=== PATIENT | male | born 1945 | race Caucasian/White ===

== ENCOUNTER 2019-10-16 12:03 | Emergency (ER) | payer MEDICARE, BC, SELFPAY ==
[2019-10-16 12:21] VITALS: BP 132/80; PULSE 67; RESP 16; TEMP 37.1; O2SAT 96; BMI 25.9
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
[2019-10-16 12:52] LABS: Add Manual Diff / Slide Review NO; Basophils Absolute Auto 0 /uL (0-100); Basophils Percent Auto 0.9 % (0-2); Eosinophils Absolute Auto 100 /uL (0-450); Eosinophils Percent Auto 1.5 % (2-4); Hematocrit 40.3 % (41-53); Hemoglobin 13.7 g/dL (13.5-17.5); Lymphocytes Absolute Auto 1000 /uL (1100-4500); Lymphocytes Percent Auto 20.5 % (25-40); Mean Corpuscular HGB Conc 33.9 % (30-36); Mean Corpuscular Hemoglobin 32.4 PG (26-34); Mean Corpuscular Volume 95.5 fL (80-100); Monocytes Absolute Auto 400 /uL (0-900); Monocytes Percent Auto 8.4 % (3-14); Neutrophils Absolute Auto 3400 /uL (1500-7000); Neutrophils Percent Auto 68.7 % (50-75); Platelet Count 154 X10^3/uL (150-400); Red Blood Cell Count 4.22 X10^6/uL (4.5-5.9); Red Cell Distribution Width 13.7 % (11.6-14.8)
[2019-10-16 12:59] LABS: INR 1.3 (0.9-1.3); Prothrombin Time 14.6 SECONDS (10.1-12.7)
== END 2019-10-16 13:17 | disposition home or self-care (01) ==
PROVIDERS: Emergency Provider Emergency Medicine
DX: S40.022A Contusion of left upper arm, initial encounter (principal); Z79.01 Long term (current) use of anticoagulants
CPT/HCPCS: 36415; 85025; 85610; 99281; 99283

== ENCOUNTER 2021-06-18 21:20 | Emergency (ER) | payer MEDICARE, BC, SELFPAY ==
[2021-06-18 21:32] VITALS: PULSE 86; RESP 22; O2SAT 97
[2021-06-18 21:34] VITALS: BP 149/70; PULSE 88; RESP 17; TEMP 37; O2SAT 98; BMI 25.2
--- NOTE | 2021-06-18 21:39 | DI.RAD.S_ITS ---
PROCEDURE: XR CHEST 1V INDICATIONS: dizziness TECHNIQUE: One view of the chest was acquired. COMPARISON: None. FINDINGS: Surgical changes and devices: None. Lungs and pleura: Subtle patchy opacities in lung bases bilat No pleural effusions or pneumothorax. Mediastinum: Mediastinal contours appear normal. Heart size is normal. Bones and chest wall: No suspicious bony lesions. Overlying soft tissues appear unremarkable. IMPRESSION: Bibasilar atelectasis versus pneumonia. Dictated by: Leah Koch MD, PhD on 06/18/2021 at 22:03 Approved by: Leah Koch MD, PhD on 06/18/2021 at 22:03
[2021-06-18 21:40] VITALS: BP 120/66; PULSE 81; RESP 19; O2SAT 96
[2021-06-18 22:00] VITALS: BP 112/59; PULSE 80; RESP 10; O2SAT 94
[2021-06-18 22:30] VITALS: BP 111/59; PULSE 79; RESP 12; O2SAT 93
[2021-06-18] MEDS: SODIUM CHLORIDE 0.9% 1,000 ML 1000 ML IV (22:44)
[2021-06-18 22:52] LABS: Add Manual Diff / Slide Review NO; Basophils Absolute Auto 100 /uL (0-100); Basophils Percent Auto 1.3 % (0-2); Eosinophils Absolute Auto 100 /uL (0-450); Eosinophils Percent Auto 1.6 % (2-4); Hematocrit 37.2 % (41-53); Hemoglobin 12.7 g/dL (13.5-17.5); Lymphocytes Absolute Auto 1100 /uL (1100-4500); Lymphocytes Percent Auto 22.5 % (25-40); Mean Corpuscular HGB Conc 34.1 % (30-36); Mean Corpuscular Hemoglobin 30.8 PG (26-34); Mean Corpuscular Volume 90.3 fL (80-100); Monocytes Absolute Auto 400 /uL (0-900); Monocytes Percent Auto 8.4 % (3-14); Neutrophils Absolute Auto 3300 /uL (1500-7000); Neutrophils Percent Auto 66.2 % (50-75); Platelet Count 179 X10^3/uL (150-400); Red Blood Cell Count 4.12 X10^6/uL (4.5-5.9); Red Cell Distribution Width 13.8 % (11.6-14.8)
[2021-06-18 23:00] VITALS: BP 142/70; PULSE 78; RESP 12; O2SAT 96
[2021-06-18 23:05] LABS: INR 1.7 (0.9-1.3); Prothrombin Time 19.4 SECONDS (10.1-12.7)
[2021-06-18 23:07] LABS: BUN Creatinine Ratio 33.3 (6-22); Blood Urea Nitrogen 26 mg/dL (9-20); Calcium 8.9 mg/dL (8.4-10.2); Carbon Dioxide 23 mmol/L (22-32); Chloride 107 mmol/L (98-107); Creatine Kinase 113 U/L (55-170); Estimated Glomerular Filt Rate > 60.0 mL/min (>60); Glucose 143 mg/dL (80-110); HEMOLYSIS 15 (0-50); Magnesium 1.9 mg/dL (1.6-2.3); Sodium 137 mmol/L (137-145)
[2021-06-18 23:08] LABS: PTT Partial Thromboplastin Tim 40 SECONDS (26.4-36.2)
[2021-06-18 23:18] LABS: Troponin I < 0.012 ng/mL (0.01-0.034)
[2021-06-18 23:21] LABS: CKMB % Relative Index 2.6 % (1.5-5.0); Creatine Kinase MB 2.89 ng/mL (<2.37)
--- NOTE | 2021-06-18 23:26 | ED_ITS ---
HPI - Dizziness General Chief Complaint: Dizziness Stated Complaint: Low b/p/dizzy/cardioversion may 29 Time Seen by Provider: 06/18/21 21:39 Source: patient, RN notes reviewed and old records reviewed Mode of arrival: Ambulatory Limitations: no limitations History of Present Illness HPI Narrative: This is a 76-year-old male comes emergency department complaint of low blood pressure and feeling lightheaded. Patient states he started having episodes of lightheadedness after starting a 1600 calorie ADA diet. He states yesterday he did eat much of anything. He has not had any syncope or passing out but has fe lt intermittently lightheaded. He checked his blood pressure at home multiple times he had 1 reading of 80 systolic, several of 90 systolic in the majority were 110 or higher. Patient denies chest pain, shortness of breath. No diaphoresis. No nausea or vomiting. No issues with bowel movements, no urinary issues. No cold, cough or congestive symptoms. He has had a cardiac ablation x2. This was unsuccessful in controlling his AFib and he had a cardioversion on May 30, 2021 at [facility]. He notes that he did not have any readings that showed irregular beats on his monitors for about a week and has occasionally but not persistently had them. He has follow-up on July 14, 2021. He is anticoagulated on Xarelto, he takes metoprolol 12.5 mg daily, atorvastatin, pr is on tamsulosin. He denies any prior cardiac stents. 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 No known drug allergies. No tobacco, alcohol or illicit. Related Data Allergies Allergy/AdvReac Type Severity Reaction Status Date / Time No Known Drug Allergies Allergy Verified 10/16/19 12:54 Review of Systems Review of Systems ROS Unobtainable: All systems reviewed & are unremarkable except as noted in HPI and below Patient History Social History Smoking Status: Never smoker Smoking Status: Never smoker alcohol intake frequency: a few times a month Alcohol type: beer Substance Use Type: does not use Exam Narrative Exam Narrative: GENERAL: Alert and oriented x three, male in mild distress. HEENT: Head normocephalic, atraumatic, EOMI, pupils reactive, face symmetric, moist mucous membranes NECK: Supple, full range of motion CARDIOVASCULAR: Regular rate and rhythm without murmurs, rubs or gallops. RESPIRATORY: Breath sounds equal bilaterally, no wheezes rales or rhonchi. ABDOMEN: Soft, nontender. Normoactive bowel sounds all 4 quadrants. No guarding or rebound, rigidity, no mass : No CVA tenderness EXTREMITIES: Normal range of motion, no clubbing or edema. Neurovascularly intact NEUROLOGICAL: Cranial nerves II through XII grossly intact. Moving all extremities SKIN: Warm, dry, no petechiae, no rashes or lesions. Initial Vital Signs Initial Vital Signs: Vital Signs Pulse Rate 86 06/18/21 21:32 Respiratory Rate 22 06/18/21 21:32 Pulse Oximetry 97 06/18/21 21:32 Course Orders Ordered: ED Orders 06/18/21 21:38 EKG-12 Lead Stat 06/18/21 21:39 XR chest 1V Stat 06/18/21 22:40 Basic Metabolic Panel Stat Complete Blood Count AUTO DIFF Stat Magnesium Stat Partial Thromboplastin Time Stat Prothrombin Time INR Stat Thyroid Stimulating Hormone Stat Troponin & CK Cardiac Panel Stat Discontinued Medications Sodium Chloride (Normal Saline 0.9%) 1,000 mls @ 1,000 mls/hr IV BOLUS ONE Stop: 06/18/21 22:38 Last Infusion: 06/19/21 00:06 Dose: 0 mls/hr Documented by: Admin: 06/18/21 22:44 Dose: 1,000 mls/hr Documented by: SMOOTH Vital Signs Vital signs: Vital Signs - 8 hr 06/18/21 21:32 06/18/21 21:34 06/18/21 21:40 Temperature 98.6 F Pulse Rate 86 88 81 Respiratory Rate 22 17 19 Blood Pressure 149/70 H 120/66 Pulse Oximetry 97 98 96 06/18/21 22:00 06/18/21 22:30 06/18/21 23:00 Temperature Pulse Rate 80 79 78 Respiratory Rate 10 L 12 12 Blood Pressure 112/59 L 111/59 L 142/70 H Pulse Oximetry 94 93 96 MDM - Dizziness Lab Data Result diagrams: 06/18/21 22:40 06/18/21 22:40 Labs: Lab Results 06/18/21 06/18/21 06/18/21 Range/Units 22:40 22:40 22:40 WBC 5.0 (4.5-11.0) X10^3/uL RBC 4.12 L (4.5-5.9) X10^6/uL Hgb 12.7 L (13.5-17.5) g/dL Hct 37.2 L (41-53) % MCV 90.3 (80-100) fL MCH 30.8 (26-34) PG MCHC 34.1 (30-36) % RDW 13.8 (11.6-14.8) % Plt Count 179 (150-400) X10^3/uL Neut % (Auto) 66.2 (50-75) % Lymph % (Auto) 22.5 L (25-40) % Calvert % (Auto) 8.4 (3-14) % Eos % (Auto) 1.6 L (2-4) % Baso % (Auto) 1.3 (0-2) % Neut # (Auto) 3300 (0837-1894) /uL Lymph # (Auto) 1100 (2393-0599) /uL Calvert # (Auto) 400 (0-900) /uL Eos # (Auto) 100 (0-450) /uL Baso # (Auto) 100 (0-100) /uL PT 19.4 H (10.1-12.7) SECONDS INR 1.7 H (0.9-1.3) APTT 40 H (26.4-36.2) SECONDS Sodium 137 (137-145) mmol/L Potassium 4.0 (3.4-5.1) mmol/L Chloride 107 (98-107) mmol/L Carbon Dioxide 23 (22-32) mmol/L BUN 26 H (9-20) mg/dL Creatinine 0.78 (0.66-1.25) mg/dL Estimated GFR > 60.0 (>60) mL/min BUN/Creatinine Ratio 33.3 H (6-22) Glucose 143 H (80-110) mg/dL Calcium 8.9 (8.4-10.2) mg/dL Magnesium 1.9 (1.6-2.3) mg/dL Total Creatine Kinase 113 (55-170) U/L CK-MB (CK-2) 2.89 H (<2.37) ng/mL CK-MB (CK-2) Rel Index 2.6 (1.5-5.0) % Troponin I < 0.012 (0.01-0.034) ng/mL TSH (0.47-4.68) uIU/mL 06/18/21 Range/Units 22:40 WBC (4.5-11.0) X10^3/uL RBC (4.5-5.9) X10^6/uL Hgb (13.5-17.5) g/dL Hct (41-53) % MCV (80-100) fL MCH (26-34) PG MCHC (30-36) % RDW (11.6-14.8) % Plt Count (150-400) X10^3/uL Neut % (Auto) (50-75) % Lymph % (Auto) (25-40) % Calvert % (Auto) (3-14) % Eos % (Auto) (2-4) % Baso % (Auto) (0-2) % Neut # (Auto) (1211-2934) /uL Lymph # (Auto) (4118-5171) /uL Calvert # (Auto) (0-900) /uL Eos # (Auto) (0-450) /uL Baso # (Auto) (0-100) /uL PT (10.1-12.7) SECONDS INR (0.9-1.3) APTT (26.4-36.2) SECONDS Sodium (137-145) mmol/L Potassium (3.4-5.1) mmol/L Chloride (98-107) mmol/L Carbon Dioxide (22-32) mmol/L BUN (9-20) mg/dL Creatinine (0.66-1.25) mg/dL Estimated GFR (>60) mL/min BUN/Creatinine Ratio (6-22) Glucose (80-110) mg/dL Calcium (8.4-10.2) mg/dL Magnesium (1.6-2.3) mg/dL Total Creatine Kinase (55-170) U/L CK-MB (CK-2) (<2.37) ng/mL CK-MB (CK-2) Rel Index (1.5-5.0) % Troponin I (0.01-0.034) ng/mL TSH 5.98 H (0.47-4.68) uIU/mL Imaging Data Chest x-ray: Radiologist's Impression: [address] [address] XRay Report Signed Patient: Paris Canchola MR#: [id number] : 1945 Acct:[id number] Age/Sex: 76 / M Date of Service: 06/18/21 Loc: ED Accession Number: [id number] ?? Procedure: XR chest 1V Ordering Provider: Kyara Arreguin D.O. PROCEDURE:? XR CHEST 1V ? INDICATIONS:? dizziness ? TECHNIQUE:? One view of the chest was acquired.? ? COMPARISON:? None. ? FINDINGS:? ? Surgical changes and devices:? None.? ? Lungs and pleura:? Subtle patchy opacities in lung bases bilat No pleural effusions or pneumothorax.? ? Mediastinum:? Mediastinal contours appear normal.? Heart size is normal.? ? Bones and chest wall:? No suspicious bony lesions.? Overlying soft tissues appear unremarkable.? ? IMPRESSION:? Bibasilar atelectasis versus pneumonia. ? ? Dictated by: Leah Koch MD, PhD on 06/18/2021 at 22:03 ? ? Approved by: Leah Koch MD, PhD on 06/18/2021 at 22:03?? ECG Data Attestation: I personally reviewed and interpreted this ECG as follows: Prior ECG tracings: not available for review Interpretation: Sinus rhythm with occasional PVC. Rate 86, P are 200, QRS 86 and QTC 449. No acute ST elevation or depression appreciated. MDM Narrative Medical decision making narrative: This is a 76-year-old male who comes emergency department for complaint of lobar pressure, lightheadedness sensation any cardioversion in 2021. Patient's labs are reassuring. Patient's chest x-ray shows possible atelectasis versus pneumonia. Patient states that he has not had any congestive symptoms no cold cough for pneumonia type things. He states he has scoliosis and does sort of hold himself flexed. Patient and I discussed he denies any symptoms of infection and suspect this is more atelectasis today. Patient's blood pressures here are more appropriate. His vitals are otherwise appropriate. 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 Discharge Plan Departure Patient Disposition: Home Clinical Impression: Intermittent lightheadedness Activity Restrictions/Additional Instructions: Follow-up with your funeral service practitioner/embalmer. When individuals lose weight this can sometimes allowed your blood pressure to run lower. Make sure your hydrating well. If you continue to have persistently low blood pressures your physician may adjust your metoprolol. Please return for fevers, chest pain, shortness of breath, persistent lightheadedness or passing out, new swelling in your extremities or other new or concerning symptoms.
[2021-06-18 23:50] LABS: Thyroid Stimulating Hormone 5.98 uIU/mL (0.47-4.68)
== END 2021-06-19 00:07 | disposition home or self-care (01) ==
PROVIDERS: Emergency Provider Emergency Medicine
DX: R42 Dizziness and giddiness (principal); Z79.01 Long term (current) use of anticoagulants; Z79.899 Other long term (current) drug therapy
CPT/HCPCS: 36415; 71045; 80048; 82550; 82553; 83735; 84443; 84484; 85025; 85610; 85730; 93005; 93010; 96360; 99284

== ENCOUNTER → 2023-05-28 09:55 | Outpatient (CLI) | payer MEDICARE, BC, SELFPAY ==
[2023-05-28 11:35] LABS: Hematocrit 36.9 % (41-53); Hemoglobin 12.2 g/dL (13.5-17.5); Mean Corpuscular HGB Conc 33.1 % (30-36); Mean Corpuscular Hemoglobin 29.8 PG (26-34); Mean Corpuscular Volume 90.2 fL (80-100); Platelet Count 137 X10^3/uL (150-400); Red Blood Cell Count 4.09 X10^6/uL (4.5-5.9); Red Cell Distribution Width 14.8 % (11.6-14.8); White Blood Cell Count 4.2 X10^3/uL (4.5-11.0)
[2023-05-28 11:46] LABS: Hemoglobin A1C% w Est Avg Glu 6.5 % (4.0-6.0)
[2023-05-28 11:54] LABS: Alanine Aminotransferase 40 IU/L (<50); Albumin 4.1 g/dL (3.5-5.0); Albumin Globulin Ratio 1.1 (1.0-2.8); Alkaline Phosphatase 109 U/L (38-126); Aspartate Aminotransferase 37 IU/L (17-59); BUN Creatinine Ratio 27.3 (6-22); Bilirubin Total 1.1 mg/dL (0.2-1.3); Blood Urea Nitrogen 21 mg/dL (9-20); Calcium 8.9 mg/dL (8.4-10.2); Carbon Dioxide 23 mmol/L (22-32); Chloride 106 mmol/L (98-107); Cholesterol 107 mg/dL (140-199); Estimated Glomerular Filt Rate > 60 mL/min (>60); Globulin 3.6 g/dL (1.7-4.1); Glucose 117 mg/dL (80-110); HDL Cholesterol 37 mg/dL (40-60); HEMOLYSIS < 15 (0-50); LDL Cholesterol Calculated 58 mg/dL (<100); Potassium 4.2 mmol/L (3.4-5.1); Sodium 138 mmol/L (137-145); Total Protein 7.7 g/dL (6.3-8.2); Triglycerides 59 mg/dL (35-150)
[2023-05-28 12:22] LABS: Prostate Specific Antigen 0.456 ng/mL (0.10-4.00)
[2023-05-28 12:24] LABS: TSH w/ Reflex to FT4 2.82 uIU/mL (0.47-4.68)
== END ==
PROVIDERS: PCP Internal Medicine; Referring Provider Internal Medicine; Visit Provider Internal Medicine
DX: Z00.00 Encounter for general adult medical examination without abnormal findings (principal); N13.8 Other obstructive and reflux uropathy; N40.1 Benign prostatic hyperplasia with lower urinary tract symptoms; E78.2 Mixed hyperlipidemia; I48.0 Paroxysmal atrial fibrillation; R03.0 Elevated blood-pressure reading, without diagnosis of hypertension; R73.01 Impaired fasting glucose
CPT/HCPCS: 36415; 80053; 80061; 83036; 84153; 84443; 85027

== ENCOUNTER 2023-06-05 13:39 | Day surgery (SDC) | payer MEDICARE, BC, SELFPAY ==
--- NOTE | 2023-06-05 | PATH_ITS ---
[facility] Accession Number: [id number] No. of containers..01 Tissue . 01 Material submitted: . rectum - RECTAL POLYP . 01 Diagnosis: RECTAL POLYP: Hyperplastic polyp. MRV 06/07/2023 1325 Local . 01 Electronically signed: . Edy Brice MD, PhD, Pathologist NPI- [id number] . 01 Gross description: . RECTAL POLYP: Received in formalin is 1 fragment(s) of pagan, soft tissue measuring 0.8 x 0.5 x 0.2 cm submitted entirely in 1 cassette(s) /MAY 06/07/2023 0121 Local . 01 Pathologist provided ICD-10: K62.1 . 01 CPT . 672930 Specimen Comment: A courtesy copy of this report has been sent to [phone] Performed at: 01 [facility] [address] [place] [address], [place], [place] [id number] MD Irving Cantu MD Phone: [phone]
[2023-06-05 13:55] VITALS: BP 159/95; PULSE 78; RESP 18; TEMP 36.2; O2SAT 97
--- NOTE | 2023-06-05 14:02 | PM.PREOP ---
Pre-operative Note COVID-19 COVID-19 status: Not tested Interval Note History & Physical reviewed/Exam performed by Physician: Yes Changes to H&P: No ASA Class (for procedural sedation): II
[2023-06-05] MEDS: LACTATED RINGERS 1,000 ML 42 ML IV (14:06)
--- NOTE | 2023-06-05 15:25 | PM.OP.COLON ---
Operative Date/Time/Diagnoses Date of procedure: 06/05/23 Time of procedure: 15:26 Pre-op diagnosis: Change in bowel function Post-op diagnosis: same Procedure & Clinicians Study performed: Sigmoidoscopy Same procedure as scheduled: No Surgeon: Emmett Silverman Procedure Notes Procedure in detail: Surgeon: Emmett Silverman MD Anesthesia: Brenda Connelly CRNA Procedure: The patient was brought to the endoscopy suite, placed in left lateral decubitus position. The patient was connected to monitoring devices. A time-out was performed. Sedation was administered. Once the patient was adequately sedated, a digital rectal exam was performed and was normal. The scope was then inserted and advanced to to about the mid sigmoid colon. There was an acute angle and a very narrow stricture. There was moderate diverticulosis in the sigmoid colon. The patient was repositioned was applied to try to change geometry sigmoid to no avail. The colonoscope was switched out to a pediatric colonoscope but no further progress could be made past the acute angulation in the sigmoid colon. At this point the procedure was aborted and the scope was withdrawn. One small polyp was seen in the rectum and removed with a cold snare. The scope was retroflexed and no other abnormalities were seen. Scope withdrawal time: Not applicable Sedation time: 33 minutes EBL: 2 mL Findings: Acute angulation in the sigmoid colon with diverticulosis and 1 small rectal Post-procedure Disposition: PACU
[2023-06-05 15:29] VITALS: BP 118/75; PULSE 80; RESP 20; TEMP 36.8; O2SAT 92
[2023-06-05 15:34] VITALS: BP 120/66; PULSE 71; RESP 14; O2SAT 92
[2023-06-05 15:39] VITALS: BP 137/79; PULSE 68; RESP 12; TEMP 36.4; O2SAT 97
[2023-06-05 15:47] VITALS: BP 136/86; PULSE 77; RESP 12; TEMP 36.5; O2SAT 96
== END 2023-06-05 16:12 | disposition home or self-care (01) ==
PROVIDERS: PCP Internal Medicine; Referring Provider Surgery; Visit Provider Surgery
PROC: 0DJD8ZZ Inspection of Lower Intestinal Tract, Via Natural or Artificial Opening Endoscopic (ICD-10-PCS; CPT 45378; principal; 2023-06-05 14:30)
DX: R19.4 Change in bowel habit (principal); K57.30 Diverticulosis of large intestine without perforation or abscess without bleeding; K62.1 Rectal polyp
CPT/HCPCS: 45331; J2704

== ENCOUNTER → 2023-06-13 09:04 | Outpatient (CLI) | payer MEDICARE, BC, SELFPAY ==
--- NOTE | 2023-06-13 09:05 | DI.CT.S_ITS ---
PROCEDURE: CT ABDOMEN PELVIS W CON INDICATIONS: change in bowel function TECHNIQUE: After the administration of intravenous contrast, axial sections acquired from the lung bases to the pubic symphysis. Coronal and sagittal reformats were performed. For radiation dose reduction, the following was used: automated exposure control, adjustment of mA and/or kV according to patient size. COMPARISON: None. FINDINGS: Image quality: Diagnostic. Lower Chest: Cardiomegaly. Three-vessel coronary calcifications. ABDOMEN: Liver: No solid mass. Gallbladder: Calcifications within the gallbladder. Biliary ducts: No biliary dilation. Pancreas: No ductal dilation. Spleen: Size is within normal limits. Adrenal Glands: No adrenal nodules. Kidneys and Ureters: No hydronephrosis. No solid mass. No complex renal cystic lesion which requires follow up. Stomach and Bowel: Normal colonic caliber, without significant wall thickening. Colonic diverticulosis without evidence of diverticulitis. Peritoneum: No abnormal intraperitoneal fluid. No free air. Central mesenteric fat stranding. Ventral Wall: No significant ventral hernia. Abdominal Nodes: Central mesenteric adenopathy, including a round lymph node measuring 1.7 x 1.7 centimeters in the left lower quadrant (series 2, image 51). Vessels: Aorta and inferior vena cava are normal in size. PELVIS: Pelvic Organs: Unremarkable. Bladder: No bladder wall thickening, accounting for underdistention. Pelvic Nodes: No enlarged lymph nodes. Miscellaneous: No inguinal hernias are seen. Bones: No aggressive osseous abnormality. Degenerative disc disease. Osteoporosis by Hounsfield units criteria. IMPRESSION: No obstructing rectal or sigmoid mass. Recommend diagnostic colonoscopy given symptoms. Colonic diverticulosis without evidence of diverticulitis. 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 Recommend surgical referral. Central mesenteric fat stranding with associated abnormal lymphadenopathy. Findings are concerning for lymphoma. Recommend hematology/oncology referral. Osteoporosis by Hounsfield units criteria. Marked coronary artery calcifications. Dictated by: Carlos Fuentes M.D. on 06/13/2023 at 12:30 Approved by: Carlos Fuentes M.D. on 06/13/2023 at 12:35
== END ==
PROVIDERS: PCP Internal Medicine; Referring Provider Surgery; Visit Provider Surgery
DX: K57.90 Diverticulosis of intestine, part unspecified, without perforation or abscess without bleeding (principal); R19.8 Other specified symptoms and signs involving the digestive system and abdomen; I51.7 Cardiomegaly; I25.10 Atherosclerotic heart disease of native coronary artery without angina pectoris; M81.0 Age-related osteoporosis without current pathological fracture
CPT/HCPCS: 74177; Q9967

== ENCOUNTER → 2023-07-29 13:51 | Outpatient (CLI) | payer MEDICARE, BC, SELFPAY | PROVIDERS: PCP Internal Medicine; Visit Provider Urology | DX: N40.1 Benign prostatic hyperplasia with lower urinary tract symptoms (principal); N13.8 Other obstructive and reflux uropathy | CPT/HCPCS: 87086 ==

== ENCOUNTER → 2023-08-13 13:56 | Outpatient (CLI) | payer MEDICARE, BC, SELFPAY ==
[2023-08-13 14:20] LABS: Add Manual Diff / Slide Review NO; Basophils Absolute Auto 0 /uL (0-100); Basophils Percent Auto 0.9 % (0-2); Eosinophils Absolute Auto 100 /uL (0-450); Eosinophils Percent Auto 2.6 % (2-4); Hematocrit 36.6 % (41-53); Lymphocytes Absolute Auto 1000 /uL (1100-4500); Lymphocytes Percent Auto 21.2 % (25-40); Mean Corpuscular HGB Conc 32.8 % (30-36); Mean Corpuscular Hemoglobin 28.9 PG (26-34); Mean Corpuscular Volume 88.1 fL (80-100); Monocytes Absolute Auto 400 /uL (0-900); Monocytes Percent Auto 7.7 % (3-14); Neutrophils Absolute Auto 3300 /uL (1500-7000); Neutrophils Percent Auto 67.6 % (50-75); Platelet Count 181 X10^3/uL (150-400); Red Blood Cell Count 4.16 X10^6/uL (4.5-5.9); Red Cell Distribution Width 16.2 % (11.6-14.8); White Blood Cell Count 4.8 X10^3/uL (4.5-11.0)
[2023-08-13 14:49] LABS: HEMOLYSIS < 15 (0-50); Iron 52 ug/dL (49-181)
[2023-08-13 14:49] LABS: BUN Creatinine Ratio 30.8 (6-22); Blood Urea Nitrogen 24 mg/dL (9-20); Calcium 8.9 mg/dL (8.4-10.2); Carbon Dioxide 21 mmol/L (22-32); Chloride 110 mmol/L (98-107); Estimated Glomerular Filt Rate > 60 mL/min (>60); Glucose 129 mg/dL (80-110); HEMOLYSIS < 15 (0-50); Potassium 4.2 mmol/L (3.4-5.1); Sodium 140 mmol/L (137-145)
--- NOTE | 2023-08-13 14:57 | DI.CT.S_ITS ---
PROCEDURE: CT IVP A/P W/WO INDICATIONS: multiple facets that could be enter related and/or new malig. History of right testicular cancer with radiation. Inguinal hernia repair. TECHNIQUE: Optional 5 mm thick noncontrast images acquired from the diaphragm to the symphysis pubis. After the administration of intravenous contrast, 5 mm thick images acquired from the diaphragm to the symphysis pubis after a 10-minute delay. 2 mm thick coronal and sagittal reformats were then performed of the kidneys and ureters. For radiation dose reduction, the following was used: automated exposure control, adjustment of mA and/or kV according to patient size. COMPARISON: [facility], CT, CT ABDOMEN PELVIS W CON, 06/13/2023, 10:13. FINDINGS: Image quality: Diagnostic. Kidneys and Ureters: Both kidneys are normal in size, without hydronephrosis or nephrolithiasis. No perinephric fat stranding. There is normal bilateral renal enhancement. Renal calyces appear normal in morphology when filled with contrast. Opacified portions of both ureters demonstrate normal caliber. Benign renal sinus cysts. Bladder: Bladder wall thickness is normal. No calcified bladder stones. OTHER: Lower chest: Cardiomegaly. Valvular calcifications. Small hiatal hernia. Liver: No solid mass. Gallbladder: Porcelain gallbladder. Biliary ducts: No biliary dilation. Pancreas: No ductal dilation. Spleen: Size is within normal limits. Adrenal Glands: No adrenal nodules. Stomach and Bowel: Normal colonic caliber, without significant wall thickening. Colonic diverticulosis without evidence of diverticulitis. Fecal debris within the small bowel. Peritoneum: No abnormal intraperitoneal fluid. No free air. Central mesenteric fat stranding. Ventral Wall: No hernia. Abdominal Nodes: Central mesenteric adenopathy, greater in size compared with prior. Dominant node measures 1.9 x 1.8 cm in the left lower quadrant, previously 1.7 x 1.7 cm (series 4, image 108). Vessels: Aorta and inferior vena cava are normal in size. PELVIS: Pelvic Organs: Unremarkable. Pelvic Nodes: No enlarged lymph nodes. Miscellaneous: No inguinal hernias are seen. Bones: No aggressive osseous abnormality. Osteoporosis by Hounsfield units criteria. Degenerative disc disease of the lumbar spine. IMPRESSION: No nephrolithiasis or filling defects within the opacified renal collecting system or ureters. Stable central mesenteric fat stranding with associated adenopathy, concerning for lymphoma. Stable porcelain gallbladder, which increases risk of gallbladder malignancy. Consider surgical referral. Dictated by: Carlos Fuentes M.D. on 08/13/2023 at 16:03 Approved by: Carlos Fuentes M.D. on 08/13/2023 at 16:10
[2023-08-13 15:00] LABS: Percent Iron Saturation 13 % (20-50); Total Iron Binding Capacity 397 ug/dL (261-462); Transferrin 300 mg/dL (206-381)
[2023-08-13 16:08] LABS: Ferritin 12 ng/mL (18-464)
[2023-08-13 16:22] LABS: Vitamin B12 341 pg/mL (239-931)
== END ==
PROVIDERS: PCP Internal Medicine; Referring Provider Urology; Visit Provider Urology
DX: R19.8 Other specified symptoms and signs involving the digestive system and abdomen (principal); R77.9 Abnormality of plasma protein, unspecified; K82.8 Other specified diseases of gallbladder; R31.29 Other microscopic hematuria; Z77.22 Contact with and (suspected) exposure to environmental tobacco smoke (acute) (chronic); N40.1 Benign prostatic hyperplasia with lower urinary tract symptoms; N13.8 Other obstructive and reflux uropathy; Z85.47 Personal history of malignant neoplasm of testis; Z92.3 Personal history of irradiation; D61.818 Other pancytopenia; E53.8 Deficiency of other specified B group vitamins
CPT/HCPCS: 36415; 74178; 80048; 82607; 82728; 83540; 83550; 84155; 84165; 85025; Q9967

== ENCOUNTER → 2023-08-30 08:42 | Outpatient (CLI) | payer MEDICARE, BC, SELFPAY | PROVIDERS: PCP Internal Medicine; Visit Provider Urology | DX: N40.1 Benign prostatic hyperplasia with lower urinary tract symptoms (principal); N13.8 Other obstructive and reflux uropathy | CPT/HCPCS: 87086 ==

== ENCOUNTER → 2023-09-05 16:04 | Outpatient (CLI) | payer MEDICARE, BC, SELFPAY ==
[2023-09-05 17:01] LABS: Appearance Urine UA SL CLOUDY; Bilirubin Urine UA NEGATIVE (NEGATIVE); Color Urine UA YELLOW; Glucose Urine UA NEGATIVE (Negative); Ketones Urine UA NEGATIVE (NEGATIVE); Leukocyte Esterase Urine UA 2+ (NEGATIVE); Nitrite Urine UA POSITIVE (Negative); Occult Blood Urine UA 3+ (Negative); Protein Urine UA TRACE (Negative); Specific Gravity Urine UA 1.025 (1.000-1.035); Urobilinogen Urine UA 0.2 E.U./dL (0.2); pH Urine UA 5.5 (4.5-8.0)
[2023-09-05 17:13] LABS: Bacteria Urine Few (2-10); RBC Urine 30-100/HPF (0-5/HPF); Urine Volume 10mL (spun); WBC Urine 30-100/HPF (0-5/HPF)
[2023-09-05 17:14] LABS: Amorphous Sediment Urine 1+; Culture Indicated Urine Specimen Cultured; Squamous Epithelial Cell Urine None Seen (0-5/HPF)
== END ==
PROVIDERS: PCP Internal Medicine; Visit Provider Urology
DX: N40.1 Benign prostatic hyperplasia with lower urinary tract symptoms (principal); N13.8 Other obstructive and reflux uropathy; R31.29 Other microscopic hematuria
CPT/HCPCS: 81001; 87086

== ENCOUNTER → 2023-09-13 08:39 | Outpatient (CLI) | payer MEDICARE, BC, SELFPAY | PROVIDERS: PCP Internal Medicine; Referring Provider Urology; Visit Provider Urology | DX: N40.1 Benign prostatic hyperplasia with lower urinary tract symptoms (principal); N13.8 Other obstructive and reflux uropathy | CPT/HCPCS: 81002; 87086 ==

== ENCOUNTER → 2023-09-19 12:58 | Outpatient (CLI) | payer MEDICARE, BC, SELFPAY ==
[2023-09-19 15:59] LABS: Prostate Specific Antigen 0.329 ng/mL (0.10-4.00)
== END ==
PROVIDERS: PCP Internal Medicine; Referring Provider Urology; Visit Provider Urology
DX: R31.29 Other microscopic hematuria (principal); N40.1 Benign prostatic hyperplasia with lower urinary tract symptoms; N13.8 Other obstructive and reflux uropathy
CPT/HCPCS: 36415; 84153

== ENCOUNTER → 2023-12-13 08:24 | Outpatient (CLI) | payer MEDICARE, OTHER, SELFPAY | PROVIDERS: PCP Internal Medicine; Visit Provider Urology | DX: N40.1 Benign prostatic hyperplasia with lower urinary tract symptoms (principal); N13.8 Other obstructive and reflux uropathy; R35.1 Nocturia; Z92.3 Personal history of irradiation; Z85.47 Personal history of malignant neoplasm of testis; Z77.22 Contact with and (suspected) exposure to environmental tobacco smoke (acute) (chronic); R31.29 Other microscopic hematuria; R82.81 Pyuria; Z68.28 Body mass index [BMI] 28.0-28.9, adult | CPT/HCPCS: 81002; 87077; 87086; 87147; 87186; 99214 ==

== ENCOUNTER → 2024-02-17 07:07 | Outpatient (CLI) | payer MEDICARE, OTHER, SELFPAY ==
[2024-02-17 07:53] LABS: Hematocrit 35.7 % (41-53); Hemoglobin 11.9 g/dL (13.5-17.5); Mean Corpuscular HGB Conc 33.3 % (30-36); Mean Corpuscular Volume 90.2 fL (80-100); Platelet Count 163 X10^3/uL (150-400); Red Blood Cell Count 3.96 X10^6/uL (4.5-5.9); Red Cell Distribution Width 13.9 % (11.6-14.8); White Blood Cell Count 3.6 X10^3/uL (4.5-11.0)
[2024-02-17 08:11] LABS: HEMOLYSIS < 15 (0-50); Iron 50 ug/dL (49-181)
[2024-02-17 08:13] LABS: BUN Creatinine Ratio 22.2 (6-22); Blood Urea Nitrogen 18 mg/dL (9-20); Calcium 9.2 mg/dL (8.4-10.2); Carbon Dioxide 24 mmol/L (22-32); Chloride 107 mmol/L (98-107); Estimated Glomerular Filt Rate > 60 mL/min (>60); Glucose 126 mg/dL (80-110); HEMOLYSIS < 15 (0-50); Potassium 4.4 mmol/L (3.4-5.1); Sodium 139 mmol/L (137-145)
[2024-02-17 08:22] LABS: Percent Iron Saturation 12 % (20-50); Total Iron Binding Capacity 410 ug/dL (261-462); Transferrin 330 mg/dL (206-381)
[2024-02-17 08:46] LABS: Ferritin 14 ng/mL (18-464)
[2024-02-17 09:00] LABS: Vitamin B12 335 pg/mL (239-931)
[2024-02-20 16:12] LABS: Methylmalonic Acid,Serum 224 nmol/L (0-378)
== END ==
PROVIDERS: PCP Internal Medicine; Referring Provider Nurse Practitioner Family; Visit Provider Nurse Practitioner Family
DX: I48.0 Paroxysmal atrial fibrillation (principal); E61.1 Iron deficiency; E53.8 Deficiency of other specified B group vitamins
CPT/HCPCS: 36415; 80048; 82607; 82728; 83540; 83550; 83921; 85027

== ENCOUNTER → 2024-03-23 12:02 | Outpatient (CLI) | payer MEDICARE, OTHER, SELFPAY ==
[2024-03-23 12:44] LABS: Hematocrit 35.9 % (41-53); Hemoglobin 11.9 g/dL (13.5-17.5); Mean Corpuscular HGB Conc 33.2 % (30-36); Mean Corpuscular Hemoglobin 29.8 PG (26-34); Mean Corpuscular Volume 89.7 fL (80-100); Platelet Count 166 X10^3/uL (150-400); Red Cell Distribution Width 15.2 % (11.6-14.8); White Blood Cell Count 4.2 X10^3/uL (4.5-11.0)
[2024-03-23 12:51] LABS: Hemoglobin A1C% w Est Avg Glu 6.1 % (4.0-6.0)
[2024-03-23 12:52] LABS: Alanine Aminotransferase 35 IU/L (<50); Albumin Globulin Ratio 1.3 (1.0-2.8); Alkaline Phosphatase 101 U/L (38-126); Aspartate Aminotransferase 46 IU/L (17-59); Bilirubin Total 0.5 mg/dL (0.2-1.3); Bilirubin Unconjugated 0.3 mg/dL (0.0-1.1); Globulin 3.2 g/dL (1.7-4.1); HEMOLYSIS < 15 (0-50); Total Protein 7.2 g/dL (6.3-8.2)
[2024-03-23 12:57] LABS: HEMOLYSIS < 15 (0-50); Iron 70 ug/dL (49-181)
[2024-03-23 12:59] LABS: Aspartate Aminotransferase 45 IU/L (17-59); BUN Creatinine Ratio 22.7 (6-22); Blood Urea Nitrogen 20 mg/dL (9-20); Calcium 8.9 mg/dL (8.4-10.2); Carbon Dioxide 26 mmol/L (22-32); Chloride 106 mmol/L (98-107); Cholesterol 131 mg/dL (140-199); Estimated Glomerular Filt Rate > 60 mL/min (>60); Glucose 150 mg/dL (80-110); HDL Cholesterol 42 mg/dL (40-60); HEMOLYSIS < 15 (0-50); LDL Cholesterol Calculated 65 mg/dL (<100); Potassium 4.1 mmol/L (3.4-5.1); Sodium 138 mmol/L (137-145); Triglycerides 121 mg/dL (35-150)
[2024-03-23 13:08] LABS: Percent Iron Saturation 20 % (20-50); Total Iron Binding Capacity 358 ug/dL (261-462); Transferrin 311 mg/dL (206-381)
[2024-03-23 13:24] LABS: TSH w/ Reflex to FT4 2.77 uIU/mL (0.47-4.68)
[2024-03-23 13:24] LABS: Prostate Specific Antigen 0.211 ng/mL (0.10-4.00)
[2024-03-23 13:28] LABS: Ferritin 17 ng/mL (18-464)
== END ==
PROVIDERS: PCP Internal Medicine; Referring Provider Nurse Practitioner Family; Visit Provider Nurse Practitioner Family
DX: I48.0 Paroxysmal atrial fibrillation (principal); R73.01 Impaired fasting glucose; E61.1 Iron deficiency; E78.2 Mixed hyperlipidemia; N40.1 Benign prostatic hyperplasia with lower urinary tract symptoms; N13.8 Other obstructive and reflux uropathy
CPT/HCPCS: 36415; 80048; 80061; 80076; 82728; 83036; 83540; 83550; 84153; 84443; 84450; 85027

== ENCOUNTER → 2024-04-23 09:11 | Outpatient (CLI) | payer MEDICARE, OTHER, SELFPAY ==
[2024-04-23 10:41] LABS: Albumin Globulin Ratio 1.3 (1.0-2.8); Bilirubin Unconjugated 0.3 mg/dL (0.0-1.1); HEMOLYSIS < 15 (0-50)
[2024-04-23 10:43] LABS: Alanine Aminotransferase 34 IU/L (<50); Alkaline Phosphatase 98 U/L (38-126); Aspartate Aminotransferase 41 IU/L (17-59); Bilirubin Total 0.5 mg/dL (0.2-1.3)
== END ==
LOC: LAB 09:15
PROVIDERS: PCP Internal Medicine; Referring Provider Nurse Practitioner Family; Visit Provider Nurse Practitioner Family
DX: I48.0 Paroxysmal atrial fibrillation (principal)
CPT/HCPCS: 36415; 80076

== ENCOUNTER → 2024-07-23 11:52 | Outpatient (CLI) | payer MEDICARE, OTHER, SELFPAY ==
[2024-07-23 13:10] LABS: Hematocrit 35.7 % (41-53); Hemoglobin 12.1 g/dL (13.5-17.5); Mean Corpuscular Hemoglobin 31.7 PG (26-34); Mean Corpuscular Volume 93.3 fL (80-100); Platelet Count 176 X10^3/uL (150-400); Red Blood Cell Count 3.83 X10^6/uL (4.5-5.9); Red Cell Distribution Width 13.9 % (11.6-14.8); White Blood Cell Count 4.1 X10^3/uL (4.5-11.0)
[2024-07-23 13:15] LABS: Hemoglobin A1C% w Est Avg Glu 5.7 % (4.0-6.0)
[2024-07-23 13:26] LABS: HEMOLYSIS < 15 (0-50); Iron 97 ug/dL (49-181)
[2024-07-23 13:31] LABS: BUN Creatinine Ratio 23.3 (6-22); Blood Urea Nitrogen 20 mg/dL (9-20); Calcium 9.1 mg/dL (8.4-10.2); Carbon Dioxide 25 mmol/L (22-32); Chloride 107 mmol/L (98-107); Cholesterol 133 mg/dL (140-199); Estimated Glomerular Filt Rate > 60 mL/min (>60); Glucose 107 mg/dL (80-110); HDL Cholesterol 44 mg/dL (40-60); HEMOLYSIS < 15 (0-50); LDL Cholesterol Calculated 69 mg/dL (<100); Potassium 4.4 mmol/L (3.4-5.1); Sodium 139 mmol/L (137-145); Triglycerides 98 mg/dL (35-150)
[2024-07-23 13:37] LABS: Percent Iron Saturation 27 % (20-50); Total Iron Binding Capacity 363 ug/dL (261-462); Transferrin 287 mg/dL (206-381)
[2024-07-23 14:01] LABS: Ferritin 16 ng/mL (18-464); Testosterone 82.7 ng/dL (71.8-623)
== END ==
PROVIDERS: PCP Internal Medicine; Referring Provider Internal Medicine; Visit Provider Internal Medicine
DX: R73.01 Impaired fasting glucose (principal); E61.1 Iron deficiency; E78.2 Mixed hyperlipidemia; R79.89 Other specified abnormal findings of blood chemistry
CPT/HCPCS: 36415; 80048; 80061; 82728; 83036; 83540; 83550; 84403; 85027

== ENCOUNTER → 2024-10-26 10:35 | Outpatient (CLI) | payer MEDICARE, OTHER, SELFPAY ==
[2024-10-26 11:17] LABS: Hematocrit 36.9 % (41-53); Hemoglobin 12.8 g/dL (13.5-17.5); Mean Corpuscular HGB Conc 34.7 % (30-36); Mean Corpuscular Hemoglobin 32.3 PG (26-34); Mean Corpuscular Volume 93.1 fL (80-100); Platelet Count 156 X10^3/uL (150-400)
[2024-10-26 11:44] LABS: HEMOLYSIS < 15 (0-50); Iron 86 ug/dL (49-181)
[2024-10-26 11:55] LABS: Percent Iron Saturation 24 % (20-50); Total Iron Binding Capacity 357 ug/dL (261-462); Transferrin 274 mg/dL (206-381)
[2024-10-26 11:57] LABS: Follicle Stimulating Hormone 38.8 mIU/mL
[2024-10-26 12:16] LABS: Ferritin 25 ng/mL (18-464)
== END ==
PROVIDERS: PCP Internal Medicine; Referring Provider Internal Medicine; Visit Provider Internal Medicine
DX: E61.1 Iron deficiency (principal); Z85.47 Personal history of malignant neoplasm of testis; E34.9 Endocrine disorder, unspecified
CPT/HCPCS: 36415; 82728; 83001; 83002; 83540; 83550; 84146; 84403; 85027

== ENCOUNTER → 2025-02-11 12:17 | Outpatient (CLI) | payer MEDICARE, OTHER, SELFPAY ==
--- NOTE | 2025-02-11 12:18 | DI.RAD.S_ITS ---
PROCEDURE: XR KNEE RT 3V
== END ==
PROVIDERS: PCP Internal Medicine; Referring Provider Chiropractor; Visit Provider Chiropractor
DX: S86.911A Strain of unspecified muscle(s) and tendon(s) at lower leg level, right leg, initial encounter (principal); M17.11 Unilateral primary osteoarthritis, right knee; M11.261 Other chondrocalcinosis, right knee; M25.461 Effusion, right knee
CPT/HCPCS: 73562

== ENCOUNTER → 2025-03-29 12:20 | Outpatient (CLI) | payer MEDICARE, OTHER, SELFPAY ==
[2025-03-29 18:25] LABS: Appearance Urine UA CLOUDY; Bilirubin Urine UA NEGATIVE (NEGATIVE); Color Urine UA YELLOW; Glucose Urine UA NEGATIVE (Negative); Ketones Urine UA NEGATIVE (NEGATIVE); Leukocyte Esterase Urine UA 2+ (NEGATIVE); Nitrite Urine UA POSITIVE (Negative); Occult Blood Urine UA 1+ (Negative); Protein Urine UA TRACE (Negative); Specific Gravity Urine UA 1.025 (1.000-1.035); Urobilinogen Urine UA 0.2 E.U./dL (0.2); pH Urine UA 5.5 (4.5-8.0)
[2025-03-29 18:32] LABS: Culture Indicated Urine Specimen Cultured
== END ==
PROVIDERS: PCP Internal Medicine; Visit Provider Urology
DX: R30.0 Dysuria (principal); R35.0 Frequency of micturition
CPT/HCPCS: 81001; 87086